=== PATIENT | male | born 1980 | race Caucasian/White ===

== ENCOUNTER → 2017-04-27 08:45 | Outpatient (CLI) | payer BC, SELFPAY ==
--- NOTE | 2017-04-27 08:51 | XR_ITS ---
XR knee LT 4V HISTORY: ITS.REASON: Left knee pain ORDERING PHYSICIAN: Mike Mcdonnell MD PATIENT AGE: 37 years COMPARISON: None FINDINGS: No fracture or dislocation. No lytic or blastic change. Normal mineralization. No significant arthritic changes evident. There is a moderate size suprapatellar effusion IMPRESSION: Suprapatellar effusion otherwise negative left knee
== END ==
PROVIDERS: Visit Provider Orthopaedic Surgery
DX: M25.562 Pain in left knee (principal)
CPT/HCPCS: 73564

== ENCOUNTER → 2017-05-09 07:42 | Outpatient (CLI) | payer BC, SELFPAY ==
--- NOTE | 2017-05-09 07:47 | MR_ITS ---
MR knee LT wo con HISTORY: Persistent knee pain medially and laterally with swelling following injury ORDERING PHYSICIAN: Mike Mcdonnell MD PATIENT AGE: 37 years COMPARISON: Radiograph of 04/27/2017 TECHNIQUE: Standard multiplanar multiecho sequences are performed without contrast. FINDINGS: The cruciate ligaments and collateral ligaments, patellar tendon, and quadriceps tendon are intact. There is a moderate to large size knee joint effusion mainly in the suprapatellar region. No evidence of meniscal tear. No obvious bone bruise or fracture. The patellar cartilage is preserved. IMPRESSION: 1. Moderate to large sized knee joint effusion 2. Otherwise negative MRI of the left knee
== END ==
PROVIDERS: PCP Internal Medicine; Visit Provider Orthopaedic Surgery
DX: S83.519A Sprain of anterior cruciate ligament of unspecified knee, initial encounter (principal); M25.569 Pain in unspecified knee
CPT/HCPCS: 73721

== ENCOUNTER → 2017-07-18 11:26 | Outpatient (CLI) | payer BC, SELFPAY ==
[2017-07-18 13:21] LABS: C-Reactive Protein 4.9 mg/L (0.0-0.9); Uric Acid 6.2 mg/dL (2.6-7.2)
[2017-07-18 13:44] LABS: Erythrocyte Sedimentation Rate 67 mm/hr (0-15)
[2017-07-19 14:15] LABS: Anti-Jo-1 <0.2 AI (0.0-0.9); Anti-Smith Antibody <0.2 AI (0.0-0.9); Antichromatin Antibodies <0.2 AI (0.0-0.9); Antiscleroderma-70 Antibodies <0.2 AI (0.0-0.9); RNP Antibodies <0.2 AI (0.0-0.9); Sjogren's Anti-SS-A <0.2 AI (0.0-0.9); Sjogren's Anti-SS-B <0.2 AI (0.0-0.9)
[2017-07-20 12:53] LABS: Anti-Centromere B Antibodies <0.2 AI (0.0-0.9); Anti-DNA (DS) Ab Qn 2 IU/mL (0-9); RA Latex Turbid. <10.0 IU/mL (0.0-13.9)
== END ==
PROVIDERS: Visit Provider Orthopaedic Surgery
DX: S83.512A Sprain of anterior cruciate ligament of left knee, initial encounter (principal); M25.562 Pain in left knee
CPT/HCPCS: 36415; 84550; 85651; 86038; 86140; 86431